=== PATIENT | female | born 1985 | race African-American/Black ===

== ENCOUNTER → 2018-04-11 | Emergency (ER) | payer MEDICARE ==
[~2018-04-11] VITALS: Ht 180.3 cm; Wt 74.8 kg
[~2018-04-11] MED LIST: ZOFRAN8 MG
[2018-04-11 22:37] LABS: CLARITY,URINE CLEAR (CLEAR); COLOR,URINE YELLOW (YELLOW)
[2018-04-11 22:38] LABS: BILIRUBIN,URINE NEGATIVE (NEGATIVE); KETONES,URINE NEGATIVE (NEGATIVE); LEUKOCYTE ESTERASE ,URINE 1+ (NEGATIVE); NITRITE,URINE NEGATIVE (NEGATIVE); PROTEIN,URINE DIPSTICK NEGATIVE (NEGATIVE); URINE UROBILINOGEN 0.2 mg/dL (0.2 - 1)
[2018-04-11 22:42] LABS: PREGNANCY TEST, URINE NEGATIVE (NEGATIVE)
[2018-04-11 23:03] LABS: BACTERIA,URINE RARE /HPF; EPITHELIAL CELLS,URINE MODERATE /LPF; RBC,URINE 0-5 /HPF (0-5); WBC,URINE (MAN) 0-5 /HPF (0-5)
[2018-04-11 23:56] VITALS: BP 142/84
== END | disposition home or self-care (01) ==
LOC: ER 21:57
DX: R10.9 Unspecified abdominal pain (principal); R10.2 Pelvic and perineal pain; N30.00 Acute cystitis without hematuria
CPT/HCPCS: 81001; 81025; 99283

== ENCOUNTER 2018-09-13 16:59 | Emergency (ER) | payer MEDICARE ==
[~2018-09-13] VITALS: Ht 180.3 cm; Wt 74.8 kg
--- OUTSIDE RECORDS SUMMARY | 2018-09-13 17:02 | XMS REPORT | Continuity of Care Document ---
Author Author [facility] Interface Address Unknown Phone Unavailable Problems Problem Status Onset Date Classification Date Reported Comments Source 789.07 - ABDMNAL PAIN GE 787.01 - NAUSEA Active 05/10/2015 [facility] [place] 789.00 - ABDMNAL PAIN UN Active 04/15/2014 [facility] [place] Medications Medication Details Route Status Patient Instructions Ordering Provider Order Date Source Allergies, Adverse Reactions, Alerts Substance Category Reaction Severity Reaction type Status Date Reported Comments Source Immunizations Immunization Date Given Site Status Last Updated Comments Source Results Order Name Results Value Reference Range Date Interpretation Comments Source Vital Signs Vital Sign Value Date Comments Source Encounters Location Location Details Encounter Type Encounter Number Reason For Visit Attending Provider ADM Date DC Date Status Source [facility] [id number] Avelino Lindquist 03/10/2014 03/11/2014 ALEX [place] [facility] Outpatient Imaging - [place] [facility] [id number] Avelino Lindquist 04/23/2014 04/24/2014 [facility]IRAG [place] Procedures Procedure Code Date Perfomer Comments Source
--- OUTSIDE RECORDS SUMMARY | 2018-09-13 17:02 | XMS REPORT | Clinical Summary ---
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 Active Problems Not on file Social History Date Tobacco Use Types Packs/Day Years Used Never Smoker Alcohol Use Drinks/Week oz/Week Comments No Sex Assigned at Date Recorded Not on file Industry Job Start Date Occupation Not on file Not on file Not on file Travel End Travel History Travel Start No recent travel history available. Last Filed Vital Signs Not on file Plan of Treatment Health Maintenance Due Date Last Done Comments CERVICAL CANCER SCREENING 02/15/2004 INFLUENZA VACCINE 03/20/2018 Results Not on fileafter 09/12/2017 Insurance Payer Benefit Subscriber ID Type Phone Address Plan / Group MEDICARE MEDICARE xxxxxxxxxx Medicare [place], [place] PART A AND B MEDICAID MEDICAID xxxxxxxxx Medicaid TPL TPL-MED-DA xxxxxxxxxx TPL TA COMMERCIAL MISC MISC xxxx Commercial COMMERCIAL Advance Directives Patient has advance care planning documents on file. For more information, shamika ricks contact: [place] [address] [place] [address]
[2018-09-13 18:20] LABS: CLARITY,URINE SL CLOUDY (CLEAR); COLOR,URINE YELLOW (YELLOW); LEUKOCYTE ESTERASE ,URINE NEGATIVE (NEGATIVE); NITRITE,URINE NEGATIVE (NEGATIVE)
[2018-09-13 18:21] LABS: BILIRUBIN,URINE NEGATIVE (NEGATIVE); KETONES,URINE NEGATIVE (NEGATIVE); PREGNANCY TEST, URINE NEGATIVE (NEGATIVE); PROTEIN,URINE DIPSTICK NEGATIVE (NEGATIVE); STREPTOCOCCUS GRP A ANTIGEN NEGATIVE (NEGATIVE); URINE UROBILINOGEN 0.2 mg/dL (0.2 - 1)
[2018-09-13 18:31] LABS: INFLUENZAE A&B ANTIGEN (RAPID) NEGATIVE (NEGATIVE)
[2018-09-13 18:33] LABS: AMORPHOUS SEDIMENT,URINE MODERATE (FEW); BACTERIA,URINE MANY /HPF
[2018-09-13] MEDS ORDERED: NAPROXEN 250 MG TAB PO ONE (19:00)
[2018-09-13] MEDS ORDERED: DEXAMETHASONE SOD PHOS 10 MG/1 ML VIAL IM ONE (19:00)
[2018-09-13] MEDS ORDERED: LORATADINE 10 MG TAB PO ONE (19:00)
== END 2018-09-13 20:11 | disposition home or self-care (01) ==
LOC: ER 16:59
DX: R05 Cough (principal); H65.01 Acute serous otitis media, right ear; J02.9 Acute pharyngitis, unspecified
CPT/HCPCS: 81001; 81025; 83518; 87070; 87400; 93005; 99284; J1100

== ENCOUNTER → 2019-04-03 | Outpatient (CLI) | payer MEDICARE ==
--- NOTE | 2019-04-03 16:35 | Diagnostic Imaging Report ---
Cervical spine, 5 views. History: Neck pain. Right arm numbness. Comparison: 06/30/2015. Discussion: The cervical spine is visualized on the lateral view from C1 through the top of T1. There is smooth reversal of the normal lordotic curvature. There is no evidence of fracture, subluxation, or posterior splaying. Moderate disc space narrowing with osteophytosis and uncovertebral hypertrophy is present from C4 through C6. Right C5-C6 neuroforaminal narrowing is noted. The prevertebral soft tissues are within normal limits. IMPRESSION: Degenerative changes of the cervical spine, slightly worsened compared to prior exam, with neuroforaminal narrowing as described above. Signed by: Kev Russell on 04/03/2019 4:31 PM
--- NOTE | 2019-04-03 16:36 | Diagnostic Imaging Report ---
Lumbar spine series, 5 views. History: Lower back pain. Comparison: None available. Discussion: The paraspinal soft tissues are unremarkable. The alignment of the lumbar spine is normal. There is no evidence of fracture, spondylolisthesis, or spondylolysis. The intervertebral disc spaces are within normal limits. Small osteophyte is noted at L4. IMPRESSION: Minimal degenerative changes of the lumbar spine. Signed by: Kev Russell on 04/03/2019 4:32 PM
== END ==
LOC: RAD 15:11
DX: M54.2 Cervicalgia (principal); M54.5 Low back pain
CPT/HCPCS: 72050; 72110

== ENCOUNTER → 2021-08-17 | Outpatient (CLI) | payer MEDICARE | LOC: RAD 13:00 | DX: M79.604 Pain in right leg (principal); M79.605 Pain in left leg | CPT/HCPCS: 93970 ==

== ENCOUNTER → 2021-11-23 | Outpatient (CLI) | payer MEDICARE | LOC: US 14:29 | DX: R10.9 Unspecified abdominal pain (principal) | CPT/HCPCS: 76700 ==

== ENCOUNTER 2021-11-28 23:25 | Emergency (ER) | payer MEDICARE ==
[~2021-11-28] VITALS: Ht 180.3 cm; Wt 82.6 kg
[2021-11-29] MEDS ORDERED: CLINDAMYCIN HCL 150 MG CAP PO ONE
[2021-11-29] MEDS ORDERED: ONDANSETRON HCL INJ 2MG/ML 2ML 2 MG/ML VIAL IV STA (00:12)
[2021-11-29 00:52] LABS: COLOR,URINE YELLOW (YELLOW)
[2021-11-29 00:53] LABS: CLARITY,URINE SL CLOUDY (CLEAR); KETONES,URINE NEGATIVE (NEGATIVE); LEUKOCYTE ESTERASE ,URINE NEGATIVE (NEGATIVE); NITRITE,URINE NEGATIVE (NEGATIVE); PROTEIN,URINE DIPSTICK NEGATIVE (NEGATIVE); URINE UROBILINOGEN 0.2 mg/dL (0.2 - 1)
[2021-11-29 01:08] LABS: BACTERIA,URINE MANY /HPF; EPITHELIAL CELLS,URINE MODERATE /LPF
[2021-11-29 01:25] VITALS: BP 126/76
== END 2021-11-29 01:25 | disposition home or self-care (01) ==
LOC: ER 23:48
DX: R50.9 Fever, unspecified (principal); N39.0 Urinary tract infection, site not specified; R30.0 Dysuria; Z94.7 Corneal transplant status
CPT/HCPCS: 81001; 81025; 87086; 93005; 99283; J2405

== ENCOUNTER 2022-06-02 13:01 | Emergency (ER) | payer MEDICARE ==
[~2022-06-02] VITALS: Ht 180.3 cm; Wt 82.6 kg
[2022-06-02 13:50] LABS: CLARITY,URINE SL CLOUDY (CLEAR); COLOR,URINE YELLOW (YELLOW); KETONES,URINE NEGATIVE (NEGATIVE); LEUKOCYTE ESTERASE ,URINE NEGATIVE (NEGATIVE); NITRITE,URINE NEGATIVE (NEGATIVE); PROTEIN,URINE DIPSTICK NEGATIVE (NEGATIVE); URINE UROBILINOGEN 0.2 mg/dL (0.2 - 1)
[2022-06-02 13:59] LABS: BACTERIA,URINE MODERATE /HPF; EPITHELIAL CELLS,URINE MODERATE /LPF; RBC,URINE 0-5 /HPF (0-5); WBC,URINE (MAN) 0-5 /HPF (0-5)
[2022-06-02] MEDS ORDERED: CEFPODOXIME PR200 MG PO (14:28)
[2022-06-02] MEDS ORDERED: ONDANSETRON ODT4 MG PO (14:37)
[2022-06-02 14:58] VITALS: BP 126/84
== END 2022-06-02 15:00 | disposition home or self-care (01) ==
LOC: ER 13:08
DX: R35.0 Frequency of micturition (principal); N39.0 Urinary tract infection, site not specified; Z94.7 Corneal transplant status
CPT/HCPCS: 81001; 87086; 99283

== ENCOUNTER 2022-12-28 21:16 | Emergency (ER) | payer MEDICARE ==
[~2022-12-28] VITALS: Ht 180.3 cm; Wt 82.6 kg
[~2022-12-28 21:16] MED LIST changes: +CEFPODOXIME PR200 MG PO; +ONDANSETRON ODT4 MG PO
[2022-12-28] MEDS ORDERED: SODIUM CHLORIDE 0.9% 1000ML 1,000 ML IV STA (21:37)
[2022-12-28] MEDS ORDERED: DIPHENHYDRAMINE HCL INJ 50 MG/ML VIAL IV STA (21:37)
[2022-12-28] MEDS ORDERED: METOCLOPRAMIDE HCL 10 MG/2ML VIAL IV STA (21:37)
[2022-12-28] MEDS ORDERED: METHYLPREDNISOLONE SOD SUCC 125 MG/2ML VIAL IV STA (21:37)
[2022-12-28 22:21] LABS: CREATINE KINASE 61 IU/L (29-168)
[2022-12-28 22:23] LABS: ALBUMIN 4.1 g/dL (3.5-5.0); ALBUMIN/GLOBULIN RATIO 1.2 (0.8-2.0); ANION GAP 13.2 mmol/L (8-16); CALCIUM 9.5 mg/dL (8.4-10.2); CREATININE, SERUM 0.96 mg/dL (0.57-1.11); POTASSIUM 4.2 mmol/L (3.5-5.1)
[2022-12-28 22:31] LABS: BASOPHILS # (AUTO) 0.1 (0.0-0.1); BASOPHILS % 1.3 % (0.0-1.0); EOSINOPHILS # (AUTO) 0.2 (0.0-0.4); EOSINOPHILS % 4.2 % (0.0-6.0); HEMATOCRIT 39.4 % (34.2-44.1); LYMPHOCYTES # (AUTO) 2.3 (1.0-3.2); MEAN CORPUSCULAR HEMOGLOBIN 27.1 pg (28-32); MEAN CORPUSCULAR VOLUME 82.3 fL (81-99); MONOCYTES # (AUTO) 0.3 (0.2-0.8); MONOCYTES % 7.1 % (4.4-11.3); NEUTROPHILS # (AUTO) 1.9 (2.1-6.9); NEUTROPHILS % 39.4 % (38.7-80.0); PLATELET COUNT 205 x10e3/uL (140-360); RED BLOOD COUNT 4.79 x10e6/uL (3.6-5.1); RED CELL DISTRIBUTION WIDTH 13.3 % (11.7-14.4)
[2022-12-28 23:00] LABS: AMPHETAMINES SCREEN,URINE NEGATIVE (NEGATIVE); BENZODIAZEPINES SCREEN,URINE NEGATIVE (NEGATIVE); PHENCYCLIDINE SCREEN,URINE NEGATIVE (NEGATIVE)
[2022-12-29] MEDS ORDERED: FIORICET 50-301 EACH PO (00:25)
[2022-12-29 00:38] VITALS: BP 106/69; O2SAT 100
== END 2022-12-29 00:43 | disposition home or self-care (01) ==
LOC: ER 21:38
DX: R51.9 Headache, unspecified (principal); R55 Syncope and collapse; R20.2 Paresthesia of skin; G25.82 Stiff-man syndrome; D23.9 Other benign neoplasm of skin, unspecified; Z86.16 Personal history of COVID-19
CPT/HCPCS: 36415; 70450; 71045; 80053; 80307; 81025; 82550; 82553; 84484; 85025; 93005; 99284; J1200; J2765; J2930; J7030

== ENCOUNTER 2024-03-11 15:53 | Outpatient (RCR) | payer MEDICARE ==
[~2024-03-11 15:53] MED LIST changes: +AUGMENTIN 500-1 EACH PO; +FIORICET 50-301 EACH PO
== END 2024-03-19 ==
LOC: PT 15:53
PROVIDERS: ATTEND Internal Medicine
DX: M54.2 Cervicalgia (principal); M47.812 Spondylosis without myelopathy or radiculopathy, cervical region; M62.81 Muscle weakness (generalized)

== ENCOUNTER 2024-03-20 08:28 | Outpatient (RCR) | payer MEDICARE | END 2024-04-19 | LOC: PT 08:28 | PROVIDERS: ATTEND Internal Medicine | DX: M47.812 Spondylosis without myelopathy or radiculopathy, cervical region (principal); M54.2 Cervicalgia ==

== ENCOUNTER → 2024-09-02 | Outpatient (REF) | payer MEDICARE | LOC: RAD 16:23 | PROVIDERS: ATTEND Internal Medicine | DX: M54.2 Cervicalgia (principal); M47.812 Spondylosis without myelopathy or radiculopathy, cervical region; M54.50 Low back pain, unspecified; M79.2 Neuralgia and neuritis, unspecified | CPT/HCPCS: 71046; 72040; 72100 ==